=== PATIENT | male | born 1990 | race Caucasian/White ===

== ENCOUNTER 2021-03-06 12:08 | Emergency (ER) | payer BC, OTHER ==
[2021-03-06 12:25] VITALS: BMI 31.2
[2021-03-06] MEDS ORDERED: CASIRIVIMAB/IMDEVIMAB 10 ML in SODIUM CHLORIDE 100 ML IVPB ONE (12:38)
[2021-03-06 15:23] VITALS: BP 109/69; PULSE 81; TEMP 98.4
[2021-03-06 15:34] LABS: HEMATOCRIT 46.6 % (35.4-49); HEMOGLOBIN 16.4 GM/dL (11.7-16.9); MCH 31.6 pg (25.7-33.7); MCHC 35.1 g/dl (32.0-35.9); MEAN CELL VOLUME 89.8 fl (80-96); MEAN PLT VOLUME 7.5 fl (7.5-11.1); PLATELET COUNT 342 10^3/uL (134-434); RBC 5.19 M/mm3 (4.00-5.60); RDW 12.8 % (11.9-15.9); WHITE BLOOD COUNT 4.3 K/mm3 (4.0-10.0)
[2021-03-06 15:57] LABS: CALCIUM 8.7 mg/dL (8.5-10.1)
[2021-03-06 16:01] LABS: CREATININE 0.8 mg/dL (0.55-1.3)
[2021-03-06 16:02] LABS: BLOOD UREA NITROGEN 7.8 mg/dL (7-18)
== END 2021-03-06 17:20 | disposition home or self-care (01) ==
LOC: JER 12:08
DX: U07.1 COVID-19 (principal)
CPT/HCPCS: 36415; 80048; 85027; 99284-25; M0240; Q0240